=== PATIENT | male | born 1985 | race Two or more races ===

== ENCOUNTER 2024-10-31 11:04 | Emergency (ER) | payer SELFPAY ==
[~2024-10-31] VITALS: Ht 165.1 cm; Wt 70.0 kg
[2024-10-31 11:23] VITALS: O2SAT 100
[2024-10-31 11:59] LABS: BASOPHILS % 0.7 % (0.0-2.0); EOSINOPHILS % 1.7 % (0.0-5.0); HEMATOCRIT. 41.6 % (42.0-52.0); HEMOGLOBIN. 14.3 g/dL (14.0-18.0); LYMPHOCYTES % 25.4 % (20.0-50.0); MEAN CORPUSCULAR HEMOGLOBIN 30.1 pg (28.0-32.0); MEAN CORPUSCULAR HGB CONC 34.4 g/dL (31.0-37.0); MEAN CORPUSCULAR VOLUME 87.4 fL (80.0-94.0); MEAN PLATELET VOLUME 7.3 fl (7.4-10.4); MONOCYTES % 8.5 % (2.0-8.0); NEUTROPHILS % 63.7 % (40.0-76.0); PLATELET 310 x1000/uL (130-400); RED BLOOD CELL COUNT 4.76 mill/uL (4.7-6.1); RED CELL DISTRIBUTION WIDTH 13.5 % (11.6-14.6); WHITE BLOOD COUNT 6.3 x1000/uL (4.5-11.0)
[2024-10-31 12:11] LABS: CHLORIDE 107 mEq/L (98-107); POTASSIUM 3.8 mEq/L (3.5-5.1); SODIUM 142 mEq/L (136-145)
[2024-10-31 12:12] LABS: CALCIUM 9.8 mg/dL (8.7-10.4); CARBON DIOXIDE 26 mEq/L (21-32)
[2024-10-31 12:17] LABS: CREATININE 0.8 mg/dL (0.6-1.3); GLUCOSE 98 mg/dL (70-105); UREA NITROGEN BLOOD 9 mg/dL (9-23)
[2024-10-31 12:18] LABS: ALANINE AMINOTRANSFERASE 14 IU/L (10-49); ALBUMIN 4.4 g/dL (3.2-4.8); ASPARTATE AMINOTRANSFERASE 20 IU/L (<34)
[2024-10-31 12:19] LABS: BILIRUBIN TOTAL 0.5 mg/dL (0.1-1.0); PROTEIN TOTAL 6.8 g/dL (6.0-8.3)
[2024-10-31 12:37] LABS: CLARITY URINE CLEAR (CLEAR); COLOR URINE YELLOW (YELLOW); GLUCOSE URINE NEGATIVE (NEGATIVE); KETONES URINE NEGATIVE (NEGATIVE); LEUKOCYTE ESTERASE URINE NEGATIVE (NEGATIVE); NITRITE URINE NEGATIVE (NEGATIVE); OCCULT BLOOD URINE NEGATIVE (NEGATIVE); PH URINE 5.5 (4.5-8.0); PROTEIN URINE NEGATIVE (NEGATIVE); SPECIFIC GRAVITY URINE 1.014 (1.005-1.030); UROBILINOGEN URINE 0.2 E.U./dL (0.2-1.0)
[2024-10-31] MEDS ORDERED: IBUP-2029 MT (13:32)
[2024-10-31 14:04] VITALS: BP 120/60; PULSE 70; RESP 17; TEMP 37.2; O2SAT 100
[2024-11-03 04:10] LABS: CHLAMYDIA TRACHOMATIS NAA Negative (Negative); NEISSERIA GONORRHOEAE NAA Negative (Negative)
== END 2024-10-31 14:05 | disposition home or self-care (01) ==
LOC: ER 11:26
DX: R10.30 Lower abdominal pain, unspecified (principal); Z79.899 Other long term (current) drug therapy
CPT/HCPCS: 36415; 80053; 81003; 85025; 87491; 87591; 99283

== ENCOUNTER 2025-02-07 08:13 | Emergency (ER) | payer MEDICAID ==
[~2025-02-07] VITALS: Ht 165.1 cm; Wt 64.0 kg
[~2025-02-07 08:13] MED LIST: IBUP-1455 MT
[2025-02-07 08:20] VITALS: BP 108/80; TEMP 37.1; O2SAT 97
[2025-02-07 08:24] VITALS: PULSE 100; RESP 18; O2SAT 99
== END 2025-02-07 10:07 | disposition left against medical advice (07) ==
LOC: ER 08:24
DX: M79.603 Pain in arm, unspecified (principal); Z53.21 Procedure and treatment not carried out due to patient leaving prior to being seen by health care provider
CPT/HCPCS: 99281

== ENCOUNTER 2025-02-12 08:07 | Emergency (ER) | payer MEDICAID ==
[~2025-02-12] VITALS: Ht 162.6 cm; Wt 75.0 kg
[2025-02-12 08:17] VITALS: PULSE 97; RESP 18; O2SAT 99
[2025-02-12 08:18] VITALS: BP 143/104; TEMP 36.9; O2SAT 99
== END 2025-02-12 08:45 | disposition left against medical advice (07) ==
LOC: ER 08:07
DX: M25.511 Pain in right shoulder (principal)
CPT/HCPCS: 99281; Z7610; 99282